=== PATIENT | male | born 1960 | race Caucasian/White ===

== ENCOUNTER 2018-10-02 07:24 | Day surgery (SDC) | payer OTHER ==
[2018-10-02] MEDS ORDERED: LIDOCAINE 2% (SDV) 5 ML INJ (08:52)
[2018-10-02] MEDS ORDERED: PROPOFOL 60 ML (08:52)
== END 2018-10-02 11:49 | disposition home or self-care (01) ==
LOC: GIL 07:24
DX: Z12.11 Encounter for screening for malignant neoplasm of colon (principal); K29.30 Chronic superficial gastritis without bleeding; D12.3 Benign neoplasm of transverse colon; K64.8 Other hemorrhoids; I10 Essential (primary) hypertension; E66.9 Obesity, unspecified; Z68.36 Body mass index [BMI] 36.0-36.9, adult
CPT/HCPCS: 43239; 88305; 88312